=== PATIENT | female | born 1990 | race Caucasian/White ===

== ENCOUNTER 2022-08-27 19:31 | Inpatient (IN) | payer OTHER, SELFPAY ==
[2022-08-27] VITALS (54 sets, daily range): BP systolic 110–173; BP diastolic 58–90; PULSE 54–107; RESP 12–35; TEMP 36.2–36.8; O2SAT 70–100; BMI 24.3; BMI 26.1
--- NOTE | 2022-08-27 19:39 | DI.RAD.S_ITS ---
PROCEDURE: XR ANKLE LT 2V INDICATIONS: fall TECHNIQUE: A total of 2 views of the ankle were acquired. COMPARISON: None. FINDINGS: Bones: No there is a distal tibial diagonal fracture through the distal diaphysis, centered approximately 10 cm above the tibial plafond. No dislocations. Ankle mortise is normally aligned. No suspicious bony lesions. Soft tissues: No tibiotalar joint effusion. Achilles tendon appears normal. IMPRESSION: Distal diagonal 5th tibial diaphyseal fracture, no ankle trauma seen. Dictated by: Slava Lopez M.D. on 08/27/2022 at 20:16 Approved by: Slava Lopez M.D. on 08/27/2022 at 20:18
--- NOTE | 2022-08-27 19:39 | DI.RAD.S_ITS ---
PROCEDURE: XR TIBIA FIBULA LT 2V INDICATIONS: fall TECHNIQUE: 2 views of the tibia and fibula were acquired. COMPARISON: [facility], CR, XR ANKLE LT 2V, 08/27/2022, 19:51. FINDINGS: Bones: Oblique displaced fractures of the proximal fibula and distal tibia are seen. There is also a lucency of the medial malleolus possibly a nondisplaced fracture, however the margins appear corticated and this is possibly due to remote trauma Soft tissues: No suspicious soft tissue calcifications or masses. IMPRESSION: 1. Oblique acute fractures of the proximal fibula and distal tibia. 2. Lucency of the medial malleolus with corticated margin, probably due to remote trauma. Dictated by: Siddhartha Bullock M.D. on 08/27/2022 at 20:20 Approved by: Siddhartha Bullock M.D. on 08/27/2022 at 20:24
--- NOTE | 2022-08-27 19:40 | ED.GENADULT ---
HPI - General Adult General Chief complaint: Trauma Stated complaint: Fall down stairs Time Seen by Provider: 08/27/22 19:34 Source: patient and EMS Mode of arrival: EMS History of Present Illness HPI narrative: Otherwise healthy 32-year-old woman with no significant chronic medical problems and no medications was rushing and stumbled down a flight of tends stairs. She did not hit her head, there is no loss of consciousness she is complaining of significant left ankle and lower hernandez pain but is not reporting any other areas of injury. There are no obvious areas of laceration, contusion, no open fractures and no obvious additional injuries. She is in moderate pain, did receive fentanyl EN route with the medics but otherwise appropriate and able to cooperate with exam and history. Related Data Home Medications Medication Instructions Recorded Confirmed inositol 600 mg/600 mg (1/4 600 mg PO 08/28/22 teaspoonful) oral powder Allergies Allergy/AdvReac Type Severity Reaction Status Date / Time No Known Drug Allergies Allergy Verified 08/27/22 19:37 Review of Systems Review of Systems Narrative: Remainder of complete review of systems is otherwise unremarkable except for that included in the HPI. Patient History Social History household members: spouse Smoking Status: Never smoker alcohol intake: current Smoking Status: Never smoker alcohol intake frequency: 0-2 drinks per day Substance Use Type: does not use Exam Initial Vital Signs Initial Vital Signs: Vital Signs Temperature 97.1 F L 08/27/22 19:33 Pulse Rate 70 08/27/22 19:33 Respiratory Rate 18 08/27/22 19:33 Blood Pressure 139/79 08/27/22 19:33 Pulse Oximetry 99 08/27/22 19:33 Oxygen Delivery Method 08/27/22 19:33 General: Healthy appearing, in in pain but Able to give a complete and coherent history. Well-nourished well-developed HEENT: Moist mucous membranes, normal sclera with reactive pupils, no obvious trauma to the head Neck: No midline cervical spine tenderness, supple Respiratory: Lungs are clear to auscultation, no wheezing no rales no rhonchi. Full and symmetrical air movement Chest: No tenderness to palpation of the thorax Cardiac: Regular rate and rhythm no murmurs no bruits Abdomen: Soft, nontender, good bowel tones, no flank pain. No tenderness to palpation pelvic ring or hips Skin: Warm and dry, no rashes Neurologic: Grossly neurologically intact with no obvious asymmetries or abnormalities Extremities: Left ankle was swollen lateral malleolus, neurovascularly intact Psych: Cooperative, appropriate insight and affect Procedures Orthopedic Splinting/Casting Left Long leg splint: Time of procedure: 23:02 Side: left Lower Extremity Injury Location: lower leg Lower Extremity Immobilizer: posterior splint and stirrup splint (long leg) Post splinting neuro exam: intact Post splinting vascular exam: intact Placed by: Provider Additional Comments: Splint is placed for immobilization recognizing that she will be remaining in bed until surgery tomorrow. Spaces are left to check for compartment syndrome. Procedural Sedation Time of procedure: 22:33 Time out performed: Yes Indication: fracture/dislocation reduction ASA Class: I Mallampati Airway Classification: Class I Preparation: phototypesetting equipment monitor applied, pulse oximeter, capnometry used, supplemental O2 applied, suction/airway equipment at bedside and IV secured Fentanyl: IV Midazolam: IV Midazolam dose (mg): 2 Intraservice time/total sedation time (min): 10 ED Sedation Level: Moderate (Concious) Patient Tolerated Procedure: Well Complications: none Course Orders Ordered: ED Orders 08/27/22 19:39 XR ankle LT min 3V Stat XR tibia fibula LT 2V Stat 08/27/22 19:40 Complete Blood Count AUTO DIFF Stat 08/27/22 23:03 Comprehensive Metabolic Panel Stat Acetaminophen (Acetaminophen 325 Mg Tablet) 650 mg PO Q6H PRN PRN Reason: Fever/Mild Pain (1-3) Docusate Sodium (Docusate 100 Mg Capsule) 100 mg PO BID AYAKA Hydromorphone HCl (Hydromorphone 0.5 Mg Inj) 0.5 mg IV Q2H PRN PRN Reason: Pain, Moderate (4-6) Hydromorphone HCl (Hydromorphone 1 Mg Inj) 1 mg IV Q2H PRN PRN Reason: Pain, Severe (7-10) Sodium Chloride (Normal Saline 0.9%) 1,000 mls @ 125 mls/hr IV CONT AYAKA Last Admin: 08/27/22 23:42 Dose: 125 mls/hr Documented By: ANIKA Ibuprofen (Ibuprofen 600 Mg Tablet) 600 mg PO Q6H PRN PRN Reason: Fever/Mild Pain (1-3) Naloxone HCl (Naloxone 0.4 Mg/Ml Vial) 0.2 mg IV Q2MIN PRN PRN Reason: Opiate Reversal Ondansetron HCl (Ondansetron 4 Mg/2 Ml Inj) 4 mg IV Q8HR PRN PRN Reason: Nausea And Vomiting Ondansetron HCl (Ondansetron 4 Mg Odt) 4 mg PO Q8HR PRN PRN Reason: Nausea And Vomiting Oxycodone HCl (Oxycodone Ir 5 Mg Tablet) 5 mg PO Q3H PRN PRN Reason: Pain, Moderate (4-6) Oxycodone HCl (Oxycodone Ir 10 Mg Tablet) 10 mg PO Q3H PRN PRN Reason: Pain, Severe (7-10) Discontinued Medications Fentanyl (Fentanyl 100 Mcg/2 Ml Inj) 100 mcg IV NOW ONE Stop: 08/27/22 22:02 Last Admin: 08/27/22 22:33 Dose: 100 mcg Documented By: RB Hydromorphone HCl (Hydromorphone 0.5 Mg Inj) 0.5 mg IV Q15MIN PRN PRN Reason: Pain, Last Admin: 08/27/22 22:10 Dose: 0.5 mg Documented By: Admin: 08/27/22 21:01 Dose: 0.5 mg Documented By: Admin: 08/27/22 20:22 Dose: 0.5 mg Documented By: RB Hydromorphone HCl (Hydromorphone 0.5 Mg Inj) 0.5 mg IV Q15MIN PRN PRN Reason: Pain, Hydromorphone HCl (Hydromorphone 0.5 Mg Inj) 0.5 mg IV Q15MIN PRN PRN Reason: Pain, Last Admin: 08/28/22 00:13 Dose: 0.5 mg Documented By: ANIKA Sodium Chloride (Normal Saline 0.9%) 1,000 mls @ 150 mls/hr IV CONT AYAKA Last Infusion: 08/27/22 23:28 Dose: 0 mls/hr Documented By: Admin: 08/27/22 22:20 Dose: 150 mls/hr Documented By: RB Ketorolac Tromethamine (Ketorolac 30 Mg/Ml Vial) 15 mg IV NOW ONE Stop: 08/27/22 20:15 Last Admin: 08/27/22 20:20 Dose: 15 mg Documented By: JARRED Midazolam HCl (Midazolam 2 Mg/2 Ml Vial) 2 mg IV NOW ONE Stop: 08/27/22 22:02 Last Admin: 08/27/22 22:33 Dose: 2 mg Documented By: JARRED Vital Signs Vital signs: Vital Signs - 8 hr 08/27/22 19:33 08/27/22 20:29 08/27/22 19:36 Temperature 97.1 F L 97.1 F L Pulse Rate 70 70 73 Respiratory Rate 18 18 Blood Pressure 139/79 139/79 Pulse Oximetry 99 70 L 100 Oxygen Delivery Method Room Air 08/27/22 19:37 08/27/22 19:37 08/27/22 19:40 Temperature Pulse Rate 72 76 Respiratory Rate Blood Pressure 139/79 Pulse Oximetry 100 96 Oxygen Delivery Method 08/27/22 19:45 08/27/22 19:50 08/27/22 19:55 Temperature Pulse Rate 73 68 80 Respiratory Rate Blood Pressure Pulse Oximetry 95 95 94 Oxygen Delivery Method 08/27/22 20:00 08/27/22 20:00 08/27/22 20:05 Temperature Pulse Rate 76 82 Respiratory Rate Blood Pressure 128/74 Pulse Oximetry 100 100 Oxygen Delivery Method 08/27/22 20:10 08/27/22 20:15 08/27/22 20:20 Temperature Pulse Rate 70 71 Respiratory Rate Blood Pressure Pulse Oximetry 100 98 100 Oxygen Delivery Method 08/27/22 20:25 08/27/22 20:30 08/27/22 20:30 Temperature Pulse Rate 75 74 Respiratory Rate Blood Pressure 121/68 Pulse Oximetry 100 98 Oxygen Delivery Method 08/27/22 20:35 08/27/22 20:40 08/27/22 20:40 Temperature Pulse Rate 70 72 Respiratory Rate Blood Pressure 126/69 Pulse Oximetry 100 100 Oxygen Delivery Method 08/27/22 20:45 08/27/22 20:50 08/27/22 20:50 Temperature Pulse Rate 76 73 Respiratory Rate Blood Pressure 125/68 Pulse Oximetry 100 99 Oxygen Delivery Method 08/27/22 20:55 08/27/22 21:00 08/27/22 21:00 Temperature Pulse Rate 70 71 Respiratory Rate Blood Pressure 125/65 Pulse Oximetry 100 100 Oxygen Delivery Method 08/27/22 21:05 08/27/22 21:05 08/27/22 21:10 Temperature Pulse Rate 75 Respiratory Rate Blood Pressure 127/69 118/63 Pulse Oximetry 100 Oxygen Delivery Method 08/27/22 21:10 08/27/22 21:15 08/27/22 21:20 Temperature Pulse Rate 71 69 Respiratory Rate Blood Pressure 126/67 Pulse Oximetry 100 100 Oxygen Delivery Method 08/27/22 21:20 08/27/22 21:25 08/27/22 21:30 Temperature Pulse Rate 70 77 Respiratory Rate Blood Pressure Pulse Oximetry 99 100 100 Oxygen Delivery Method 08/27/22 21:31 08/27/22 21:40 08/27/22 21:50 Temperature Pulse Rate Respiratory Rate Blood Pressure 131/82 135/81 111/67 Pulse Oximetry Oxygen Delivery Method 08/27/22 21:53 08/27/22 21:55 08/27/22 22:00 Temperature Pulse Rate 62 69 Respiratory Rate Blood Pressure 118/71 Pulse Oximetry 98 99 Oxygen Delivery Method 08/27/22 22:00 08/27/22 22:05 Temperature Pulse Rate 68 68 Respiratory Rate Blood Pressure Pulse Oximetry 99 100 Oxygen Delivery Method Medical Decision Making Lab Data 08/27/22 19:40 08/27/22 22:32 Labs: Lab Results 08/27/22 Range/Units 19:40 WBC 12.0 H (4.5-11.0) X10^3/uL RBC 4.34 (4.0-5.2) X10^6/uL Hgb 13.0 (12.0-16.0) g/dL Hct 38.9 (36-46) % MCV 89.6 (80-100) fL MCH 30.0 (26-34) PG MCHC 33.5 (30-36) % RDW 12.8 (11.6-14.8) % Plt Count 295 (150-400) X10^3/uL Neut % (Auto) 62.3 (50-75) % Lymph % (Auto) 28.0 (25-40) % Grand % (Auto) 7.6 (3-14) % Eos % (Auto) 1.4 L (2-4) % Baso % (Auto) 0.7 (0-2) % Neut # (Auto) 7500 H (9326-4757) /uL Lymph # (Auto) 3400 (3662-4156) /uL Grand # (Auto) 900 (0-900) /uL Eos # (Auto) 200 (0-450) /uL Baso # (Auto) 100 (0-100) /uL Point of Care Testing Test Results Negative Point of care testing: Point of Care Testing Test Results Negative Imaging Data XR lower extremity : Radiologist's Impression: FINDINGS:? ? Bones:? Oblique displaced fractures of the proximal fibula and distal tibia are seen.? There is also a lucency of the medial malleolus possibly a nondisplaced fracture, however the margins appear corticated and this is possibly due to remote trauma ? Soft tissues:? No suspicious soft tissue calcifications or masses.? ? IMPRESSION:? 1. Oblique acute fractures of the proximal fibula and distal tibia. 2. Lucency of the medial malleolus with corticated margin, probably due to remote trauma. ? ? Dictated by: Siddhartha Bullock M.D. on 08/27/2022 at 20:20 ? MDM Narrative Medical decision making narrative: CC: Lower extremity pain after fall down 10 stairs. This is a new an acute problem with uncertain prognosis and potential for significant systemic symptoms Corroborating data: Data collected from: patient, EMS who transported her Differential considered: Fracture knee similar of the lower extremity, ankle and foot. No current evidence of compartment syndrome, possible simply sprain but doubtful Exam documented above, pertinent findings include: Significant pain around the left ankle not particularly tender over the fibular head. Soft calf with no evidence of compartment syndrome. No abrasions or contusions and no open fractures. No additional injuries on remainder of her exam Lab Test results independently reviewed as above. Pertinent findings: Mild leukocytosis at 12.0 without left shift Point of care urine is unremarkable Urine test is negative Chemistries reveal Imaging studies independently reviewed: Spiral fracture with some displacement of the distal tibia and spiral fracture with some displacement of the proximal fibula Consultations: 928pm Dr. Anderson, orthopedist. We will review x-rays and call back 1000 Dr. Anderson his reviewed films, recommends long leg splint, hospitalization overnight with surgical intervention tomorrow. Treatments: Parenteral narcotics for pain control, imaging obtained Conscious sedation with long leg splint applied see procedure section above Re-evaluations: 1000pm patient is re-evaluated. Still with moderate amount of pain as long as she is not moving it seems to be okay. Explain the need for long lying splinting, hospitalization with surgical intervention tomorrow. Because of the severity of her pain in the manipulation that will be required for the splinting we discussed conscious sedation. She and her both agree that this would likely be most appropriate. Discussion: Otherwise healthy 32-year-old woman in a simms to get to her [id number] is a birthday constitution party fell down 10 stairs and has a proximal fibular and distal tibia fracture left side neurovascularly intact. Will be admitted to Dr. Anderson's service, bridging orders are written this evening. Anticipation of surgical intervention tomorrow. Questions are answered patient is safe for transfer to the floor and can eat up until midnight tonight. Bridging orders are entered. Discharge Plan Departure Patient Disposition: Admitted as Observation Clinical Impression: Closed left fibular fracture, Closed tibia fracture, Fall down stairs Admit Date/Time: 08/27/22 22:07 Admit Provider: Roma Bassett
[2022-08-27] MEDS: KETOROLAC 30 MG/ML VIAL 15 MG IV (20:20)
[2022-08-27] MEDS: HYDROMORPHONE 0.5 MG INJ IV ×3 (20:22→22:10)
[2022-08-27 22:09] LABS: Add Manual Diff / Slide Review NO; Basophils Absolute Auto 100 /uL (0-100); Basophils Percent Auto 0.7 % (0-2); Eosinophils Absolute Auto 200 /uL (0-450); Eosinophils Percent Auto 1.4 % (2-4); Hematocrit 38.9 % (36-46); Lymphocytes Absolute Auto 3400 /uL (1100-4500); Mean Corpuscular HGB Conc 33.5 % (30-36); Mean Corpuscular Volume 89.6 fL (80-100); Monocytes Absolute Auto 900 /uL (0-900); Monocytes Percent Auto 7.6 % (3-14); Neutrophils Absolute Auto 7500 /uL (1500-7000); Neutrophils Percent Auto 62.3 % (50-75); Platelet Count 295 X10^3/uL (150-400); Red Blood Cell Count 4.34 X10^6/uL (4.0-5.2); Red Cell Distribution Width 12.8 % (11.6-14.8)
[2022-08-27] MEDS: SODIUM CHLORIDE 0.9% 1,000 ML 150 ML IV (22:20)
[2022-08-27] MEDS: fentaNYL 100 MCG/2 ML INJ IV (22:33)
[2022-08-27] MEDS: MIDAZOLAM 2 MG/2 ML VIAL IV (22:33)
[2022-08-27 22:36] LABS: COVID19 -Nasal RAPID Negative (Negative)
[2022-08-27 23:19] LABS: Alanine Aminotransferase 24 IU/L (<35); Albumin 4.4 g/dL (3.5-5.0); Albumin Globulin Ratio 1.4 (1.0-2.8); Alkaline Phosphatase 87 U/L (38-126); Aspartate Aminotransferase 23 IU/L (14-36); BUN Creatinine Ratio 18.3 (6-22); Bilirubin Total 0.6 mg/dL (0.2-1.3); Blood Urea Nitrogen 11 mg/dL (7-17); Calcium 9.6 mg/dL (8.4-10.2); Carbon Dioxide 24 mmol/L (22-32); Chloride 105 mmol/L (98-107); Estimated Glomerular Filt Rate > 60 mL/min (>60); Globulin 3.2 g/dL (1.7-4.1); Glucose 91 mg/dL (70-100); HEMOLYSIS < 15 (0-50); Sodium 138 mmol/L (137-145); Total Protein 7.6 g/dL (6.3-8.2)
[2022-08-27] MEDS: SODIUM CHLORIDE 0.9% 1,000 ML 125 ML IV (23:42)
[2022-08-28] VITALS (17 sets, daily range): BP systolic 105–133; BP diastolic 55–101; PULSE 47–90; RESP 11–20; TEMP 36.1–37.3; O2SAT 94–100; BMI 26.1
--- NOTE | 2022-08-28 | DI.RAD.S_ITS ---
PROCEDURE: XR TIBIA FIBULA LT 2V INDICATIONS: ORIF TECHNIQUE: 10 intraoperative low resolution fluoroscopic spot films were obtained COMPARISON: [facility], CR, XR TIBIA FIBULA LT 2V, 08/27/2022, 19:51. FINDINGS: Low resolution intraoperative fluoroscopic spot films show sequential placement of internal stabilization hardware associated a comminuted tibial fracture IMPRESSION: Fluoroscopic guidance Approved by: Erick Chiu M.D. on 08/28/2022 at 11:58
[2022-08-28] MEDS: HYDROMORPHONE 0.5 MG INJ IV ×5 (00:13→14:39)
--- NOTE | 2022-08-28 00:31 | PC.ADMIT ---
Addendum entered by Fadumo Núñez R.N. 08/28/22 02:33: States pain still present but not as bad as earlier as long as I don't move it. Medicated with IV Dilaudid. CMS: toes are cool to touch but is able to wiggle them and has good cap refill. Still with some numbness around ankle Original Note: [address] Admission Note: The patient,Eder Dick,32 y/o, was given written information regarding hospital policies, unit procedures and contact persons. Patient's smoking status: Never smoker. Vital Signs - 8 hr 08/27/22 19:33 08/27/22 20:29 08/27/22 19:36 Temperature 97.1 F L 97.1 F L Pulse Rate 70 70 73 Respiratory Rate 18 18 Blood Pressure 139/79 139/79 Pulse Oximetry 99 70 L 100 Oxygen Delivery Method Room Air Oxygen Flow Rate 08/27/22 19:37 08/27/22 19:37 08/27/22 19:40 Temperature Pulse Rate 72 76 Respiratory Rate Blood Pressure 139/79 Pulse Oximetry 100 96 Oxygen Delivery Method Oxygen Flow Rate 08/27/22 19:45 08/27/22 19:50 08/27/22 19:55 Temperature Pulse Rate 73 68 80 Respiratory Rate Blood Pressure Pulse Oximetry 95 95 94 Oxygen Delivery Method Oxygen Flow Rate 08/27/22 20:00 08/27/22 20:00 08/27/22 20:05 Temperature Pulse Rate 76 82 Respiratory Rate Blood Pressure 128/74 Pulse Oximetry 100 100 Oxygen Delivery Method Oxygen Flow Rate 08/27/22 20:10 08/27/22 20:15 08/27/22 20:20 Temperature Pulse Rate 70 71 Respiratory Rate Blood Pressure Pulse Oximetry 100 98 100 Oxygen Delivery Method Oxygen Flow Rate 08/27/22 20:25 08/27/22 20:30 08/27/22 20:30 Temperature Pulse Rate 75 74 Respiratory Rate Blood Pressure 121/68 Pulse Oximetry 100 98 Oxygen Delivery Method Oxygen Flow Rate 08/27/22 20:35 08/27/22 20:40 08/27/22 20:40 Temperature Pulse Rate 70 72 Respiratory Rate Blood Pressure 126/69 Pulse Oximetry 100 100 Oxygen Delivery Method Oxygen Flow Rate 08/27/22 20:45 08/27/22 20:50 08/27/22 20:50 Temperature Pulse Rate 76 73 Respiratory Rate Blood Pressure 125/68 Pulse Oximetry 100 99 Oxygen Delivery Method Oxygen Flow Rate 08/27/22 20:55 08/27/22 21:00 08/27/22 21:00 Temperature Pulse Rate 70 71 Respiratory Rate Blood Pressure 125/65 Pulse Oximetry 100 100 Oxygen Delivery Method Oxygen Flow Rate 08/27/22 21:05 08/27/22 21:05 08/27/22 21:10 Temperature Pulse Rate 75 Respiratory Rate Blood Pressure 127/69 118/63 Pulse Oximetry 100 Oxygen Delivery Method Oxygen Flow Rate 08/27/22 21:10 08/27/22 21:15 08/27/22 21:20 Temperature Pulse Rate 71 69 Respiratory Rate Blood Pressure 126/67 Pulse Oximetry 100 100 Oxygen Delivery Method Oxygen Flow Rate 08/27/22 21:20 08/27/22 21:25 08/27/22 21:30 Temperature Pulse Rate 70 77 Respiratory Rate Blood Pressure Pulse Oximetry 99 100 100 Oxygen Delivery Method Oxygen Flow Rate 08/27/22 21:31 08/27/22 21:40 08/27/22 21:50 Temperature Pulse Rate Respiratory Rate Blood Pressure 131/82 135/81 111/67 Pulse Oximetry Oxygen Delivery Method Oxygen Flow Rate 08/27/22 21:53 08/27/22 21:55 08/27/22 22:00 Temperature Pulse Rate 62 69 Respiratory Rate Blood Pressure 118/71 Pulse Oximetry 98 99 Oxygen Delivery Method Oxygen Flow Rate 08/27/22 22:00 08/27/22 22:05 08/27/22 22:10 Temperature Pulse Rate 68 68 Respiratory Rate Blood Pressure 126/70 Pulse Oximetry 99 100 Oxygen Delivery Method Oxygen Flow Rate 08/27/22 22:10 08/27/22 22:15 08/27/22 22:20 Temperature Pulse Rate 70 78 Respiratory Rate Blood Pressure 125/68 Pulse Oximetry 100 100 Oxygen Delivery Method Oxygen Flow Rate 08/27/22 22:20 08/27/22 22:25 08/27/22 22:25 Temperature Pulse Rate 73 70 Respiratory Rate Blood Pressure 124/69 Pulse Oximetry 100 100 Oxygen Delivery Method Oxygen Flow Rate 08/27/22 22:30 08/27/22 22:30 08/27/22 22:35 Temperature Pulse Rate 71 Respiratory Rate 12 Blood Pressure 124/71 126/72 Pulse Oximetry 100 Oxygen Delivery Method Oxygen Flow Rate 08/27/22 22:35 02/04/23 22:40 08/27/22 22:41 Temperature Pulse Rate 90 107 H Respiratory Rate 31 H Blood Pressure 135/84 Pulse Oximetry 100 100 Oxygen Delivery Method Oxygen Flow Rate 08/27/22 22:41 08/27/22 22:45 08/27/22 22:45 Temperature Pulse Rate 84 54 L Respiratory Rate 35 H 18 Blood Pressure 120/67 Pulse Oximetry 100 100 Oxygen Delivery Method Oxygen Flow Rate 08/27/22 22:50 08/27/22 22:50 08/27/22 22:55 Temperature Pulse Rate 61 Respiratory Rate 16 Blood Pressure 121/69 128/58 L Pulse Oximetry 89 L Oxygen Delivery Method Nasal Cannula Oxygen Flow Rate 2.5 08/27/22 22:55 08/27/22 23:00 08/27/22 23:00 Temperature Pulse Rate 61 62 Respiratory Rate 12 12 Blood Pressure 125/61 Pulse Oximetry 100 100 Oxygen Delivery Method Nasal Cannula Room Air Oxygen Flow Rate 2.5 08/27/22 23:03 08/27/22 23:05 08/27/22 23:05 Temperature 98.2 F Pulse Rate 62 54 L Respiratory Rate 16 12 Blood Pressure 126/70 126/70 Pulse Oximetry 100 100 Oxygen Delivery Method Oxygen Flow Rate 0 08/27/22 23:10 08/27/22 23:10 08/27/22 23:15 Temperature Pulse Rate Respiratory Rate 14 Blood Pressure 125/71 127/74 Pulse Oximetry 100 Oxygen Delivery Method Oxygen Flow Rate 08/27/22 23:15 08/27/22 23:20 08/27/22 23:21 Temperature Pulse Rate 62 81 Respiratory Rate 16 19 Blood Pressure 173/90 H Pulse Oximetry 97 97 Oxygen Delivery Method Oxygen Flow Rate 08/27/22 23:21 08/27/22 23:25 08/27/22 23:35 Temperature 97.8 F Pulse Rate 82 70 60 Respiratory Rate 22 16 Blood Pressure 110/63 Pulse Oximetry 97 97 Oxygen Delivery Method Oxygen Flow Rate 08/28/22 00:29 Temperature Pulse Rate Respiratory Rate Blood Pressure Pulse Oximetry Oxygen Delivery Method Room Air Oxygen Flow Rate Patient admitted to room 213 at 2335 per stretcher from ER. Transferred into bed with use of slider with patient experiencing a good deal of pain in left LE during transfer. Is alert and oriented. Breath sounds CTA with RA sat of 97%; placed on continuous oximetry per MD order. HRR. Denies nausea. BT present and abdomen is soft. External catheter placed as patient is on bedrest and has significant pain with movement so unable to use a bedpan. Left LE is splinted and patient states she has some numbness around the ankle but able to wiggle toes (denies tingling/numbness in toes) and has good capillary refill. Both feet are cool to touch. States pain is 6/10 and described as aching/burning; medicated with IV Dilaudid. Fall risk score is moderate but no need for bed alarm at this time. Instructed on NPO status and offered mouth swabs but declines. Oriented to call light and bed controls.
--- NOTE | 2022-08-28 06:47 | DI.CT.S_ITS ---
PROCEDURE: CT LE LT W CON INDICATIONS: distal tibia fracture- possible medial mal- eval TECHNIQUE: After the administration of intravenous contrast, 3 mm axial sections acquired of the left calf , with coronal and sagittal reformats. COMPARISON: [facility], CR, XR TIBIA FIBULA LT 2V, 08/27/2022, 19:51. FINDINGS: Image quality: Excellent. Oblique comminuted fracture through the distal tibia and proximal fibula again noted. Normal bone mineralization. Ankle and the joints are preserved. Additionally, there is an incomplete nondisplaced fracture through the medial malleolus as well as an oblique vertical fracture through the posterior malleolus extending to the tibial talar joint. Ankle mortise does not appear widened. Intrinsic bones of the hindfoot are intact. IMPRESSION: 1. Nondisplaced fractures through the medial malleolus as well as the posterior malleolus with involvement of the tibial talar joint. No ankle mortise widening. 2. Comminuted oblique fractures of the distal tibial and proximal fibular diaphysis. Approved by: Erick Chiu M.D. on 08/28/2022 at 8:57
--- NOTE | 2022-08-28 07:56 | PM.HP.1 ---
History of Present Illness History of Present Illness Date Patient Seen: 08/28/22 Time Patient Seen: 07:56 Date of Onset of Symptoms: 08/27/22 Chief complaint: Fall down stairs Narrative: Patient is a 32-year-old female that is referred by Dr. Edwards. The patient was running down the stairs when she tripped and fell sustaining an injury to her left lower extremity with deformity and she was unable to weightbear. She was brought to the [facility] Emergency room by EMS and determined to have a distal tibia shaft fracture and proximal fibula fracture. She was indicated for admission to the hospital for pain control stabilization and planned fixation of her lower extremity fracture. She did not have any other injuries. She did not lose consciousness. Her vital signs were stable. She is no known medical allergies. She endorsed pain deformity swelling. Compartments were soft in the emergency room. Patient was neurovascularly intact. She was placed in a long leg splint. Admitted to the floor for planned surgery in the morning. Negative urine screen For medical history broken small toe on left leg remotely. Past medical history of PCOS. 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 Otherwise no significant medical history with her lower extremities. No previous surgery. No known family history of blood clots or hyper coagulation disorders. Patient History Family & Social History Social History: household members spouse Prior Living Arrangements House Safety & Behavioral: Feels Safe in Current Yes Environment Been Physically Hurt or No Threatened By a Person Tobacco & Substance use: Smoking Status Never smoker alcohol intake current alcohol intake frequency a few times a week Substance Use Type does not use Meds Home Medications and Allergies Home Medications Medication Instructions Recorded Confirmed Type inositol 600 mg/600 mg (1/4 600 mg PO 08/28/22 History teaspoonful) oral powder Allergies Allergy/AdvReac Type Severity Reaction Status Date / Time No Known Drug Allergies Allergy Verified 08/28/22 08:48 Review of Systems Review of Systems Narrative: No fevers chills nausea vomiting numbness or tingling no headache ROS: Yes All systems reviewed with the patient and are negative except as otherwise documented Exam Vital Signs (past 8 hours): - 08/28/22 00:29 08/28/22 05:11 08/28/22 05:11 Temperature 98.3 F Pulse Rate 66 Respiratory Rate 16 Blood Pressure 105/55 L Pulse Oximetry 97 Oxygen Delivery Method Room Air Oxygen Flow Rate 0 Oxygen Delivery Method Room Air Oxygen Flow Rate 0 Narrative Exam Narrative: Alert oriented female in no acute distress Normocephalic atraumatic Heart regular rate and rhythm Lungs clear to auscultation bilaterally Moving bilateral upper extremities no tenderness to palpation full range of motion Right lower extremity normal alignment no tenderness to palpation Left lower extremity long leg splint. Compartments are soft. Wiggles toes. Limited motor exam due to known fractures. Thigh and lower extremity compartments soft. Sensation grossly intact to light touch. Brisk capillary refill. Palpable dorsalis pedis pulse. Objective Imaging Left tib-fib two view: My impression: AP and lateral of the left tibia and fibula demonstrate distal 3rd tibia fracture proximal 3rd fibula fracture. Moderate displacement tibial fracture Left ankle three views: My impression: Three-view left ankle AP mortise and lateral demonstrate visualization of the distal 3rd tibia fracture. Proximal fibula fracture not visualized. There is a lucency nondisplaced around the medial malleolus the some cortication unclear if evidence of old trauma versus nondisplaced malleolar extension. Mortise symmetric CT scan left lower extremity: My impression: Proximal fibula fracture, distal 3rd tibial spiral shaft fracture and nondisplaced posterior malleolus fracture Labs 08/27/22 19:40 08/27/22 23:03 Labs: Laboratory Results - last 24 hr 08/27/22 08/27/22 08/27/22 19:40 23:03 Unknown WBC 12.0 H RBC 4.34 Hgb 13.0 Hct 38.9 MCV 89.6 MCH 30.0 MCHC 33.5 RDW 12.8 Plt Count 295 Neut % (Auto) 62.3 Lymph % (Auto) 28.0 [place] % (Auto) 7.6 Eos % (Auto) 1.4 L Baso % (Auto) 0.7 Neut # (Auto) 7500 H Lymph # (Auto) 3400 [place] # (Auto) 900 Eos # (Auto) 200 Baso # (Auto) 100 Sodium 138 Potassium 4.0 Chloride 105 Carbon Dioxide 24 BUN 11 Creatinine 0.60 Estimated GFR > 60 BUN/Creatinine Ratio 18.3 Glucose 91 Calcium 9.6 Total Bilirubin 0.6 AST 23 ALT 24 Alkaline Phosphatase 87 Total Protein 7.6 Albumin 4.4 Globulin 3.2 Albumin/Globulin Ratio 1.4 SARS-CoV-2 (PCR) Negative Assessment & Plan Assessment and plan (1) Closed tibia fracture: Qualifiers: Encounter type: initial encounter Fracture morphology: torus Laterality: left Tibia location: proximal Qualified Code(s): S82.162A - Torus fracture of upper end of left tibia, initial encounter for closed fracture Status: Acute (2) Closed left fibular fracture: Qualifiers: Encounter type: initial encounter Fibula location: distal Fracture morphology: torus Qualified Code(s): S82.822A - Torus fracture of lower end of left fibula, initial encounter for closed fracture Status: Acute (3) Fall down stairs: Qualifiers: Encounter type: initial encounter Qualified Code(s): W10.8XXA - Fall (on) (from) other stairs and steps, initial encounter Status: Acute (4) Fracture, posterior malleolus: Status: Acute Plan Left tib-fib fracture, distal 3rd tibia fracture. There is some questionable lucency around the medial malleolus with distal 3rd tibia fractures there is fairly high incidence of intra-articular extension. Plan to get CT scan to further evaluate this. Fracture is a surgical fracture would benefit from jehovah's witness of alignment to prevent malunion and restore early range of motion and function. We will plan for intramedullary stephen plus or minus ORIF as indicated by CT scan today. Patient has been NPO at midnight. No medication allergies will have 2 g of Ancef as preoperative antibiotic. Labs were within normal limits. Compartments are soft. No evidence of compartment syndrome. The risks and benefits of the procedure have been discussed with the patient and given the opportunity to ask questions. The risks of surgery include but are not limited to infection, malunion, nonunion, persistence of pain, damage to nerves and blood vessels, posttraumatic arthritis, DVT, PE, cardiopulmonary complications and . The patient expressed a thorough understanding of the risks and benefits of surgery and has elected to proceed. Consent was signed. --CT scan does reveal posterior malleolus fracture plan to ORIF posterior malleolus fracture and intramedullary stephen distal shaft component. Discussed proximal tibia fracture does not require separate fixation COVID-19 COVID-19 status: Negative Time Spent With Patient Critical Care time: I spent a total of [] minutes of critical care time on this patient's care today; this time is exclusive of procedural time. Quality VTE Deep Vein Thrombosis/Pulmonary Embolism Present on Admission: No
[2022-08-28] MEDS: ONDANSETRON 4 MG/2 ML INJ IV (08:24)
[2022-08-28] MEDS: LACTATED RINGERS 1,000 ML 42 ML IV ×2 (08:40→12:26)
--- NOTE | 2022-08-28 09:10 | SUR.HOLD ---
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
[2022-08-28] MEDS: CEFAZOLIN 2 GM/100 ML PREMIX 100 ML IV ×2 (09:45→17:13)
[2022-08-28] MEDS: BUPIVACAINE 0.5% W/ EPI (PF) 30 ML VIAL INJ (10:13)
--- NOTE | 2022-08-28 10:21 | SUR.OPER ---
Supine on juan flat top bed, head on pillow, arms secured on padded arm boards at <90 degrees abduction, legs uncrossed, safety belt at torso, tape over blanket over lower right leg.
--- NOTE | 2022-08-28 10:34 | CM.DANOTE ---
Patient is a 32 yo female who was admitted on 08/27/22 after fall. Pt has [employer] for insurance and her PCP is not listed. EMR was reviewed. Per Ortho, pt with tibia and fibula fx and recommending surgical intervention. SW attempted to meet bedside with pt but she is off the floor and down to surgery. Plan: SW to follow closely after surgery and likely PT eval towards determining any d/c planning needs. TANMAY Rodriguez Discharge Planning/Care Management CM Discharge Assessment Start: 08/28/22 10:22 Freq: Status: Active Protocol: Document 08/28/22 10:22 BF (Rec: 08/28/22 10:34 BF [id number]) Discharge Planning Assessment Assigned Graphic Illustrator TANMAY Andrade DPOA/Assigned Designee Name informally spouse Tu Contact Information [phone] Advance Directives? No Advance Directives on File No History Provided By Patient,Medical Record Has Patient been admitted in last 30 No days? Prior Living Arrangements House Household Members spouse Type of transporation used prior to Drives own vehicle admit Independent with ADL's Yes Is patient alert and oriented? Yes Caregiver for Another No Comment Pending surgery and PT eval to determine needs Barriers to Discharge No Discharge Plan Home Transportation Arrangement Spouse or family to transport at d/c Referrals Initiated None needed Additional Comment Pending progress after surgery Review Status In Process Please Provide Date Initial DC 08/28/22 Assessment Was Performed Next Review Type Continued Stay Review
[2022-08-28] MEDS: HYDROMORPHONE 2 MG INJ IV (12:34)
--- NOTE | 2022-08-28 12:37 | PM.OP.1 ---
Operative Date/Time/Diagnoses Date of procedure: 08/28/22 Time of procedure: 09:30 Pre-op diagnosis: 1. Left tib-fib shaft fracture closed 2. Posterior malleolus fracture closed left Post-op diagnosis: same Procedure & Clinicians Procedure: 1. Intramedullary nailing left tibia fracture closed treatment fibula. CPT code 19744 2. Open reduction internal fixation posterior malleolus fracture. CPT code [id number] for separate surgical site Same procedure as scheduled: Yes Indications: Patient is a 32-year-old female that fell down the stairs sustaining a twisting mechanism with a distal 3rd spiral tibia fracture, proximal fibular fracture and nondisplaced posterior malleolus fracture that was demonstrated on CT scan. She was indicated for treatment for her displaced unstable fracture pattern. She was brought into the hospital for pain control and compartment monitoring. Compartments were soft. She was indicated for surgery. The risks and benefits of the procedure have been discussed with the patient and given the opportunity to ask questions. The risks of surgery include but are not limited to infection, malunion, nonunion, persistence of pain, damage to nerves and blood vessels, posttraumatic arthritis, DVT, PE, cardiopulmonary complications and . The patient expressed a thorough understanding of the risks and benefits of surgery and has elected to proceed. Consent was signed. Surgeon: Roma Bassett Click Yes if Unassisted: Yes Anesthesia Type: General and Local Operative Notes Findings: Displaced distal 3rd spiral tibia fracture with posterior comminution. Separate nondisplaced posterior malleolus fracture identified on CT scan. There is an suggestion of a lucency on plain radiographs around the medial malleolus but no separate fracture line was demonstrated on CT scan other than the posterior malleolus fracture. Patient was prepped and draped. The posterior malleolus fracture remained in appropriate alignment nondisplaced minimally displaced fracture. This was then reduced and fixed with a 4.0 cannulated screw out of the Temple and Nephew set was a 4.0 x 38 mm screw partially threaded lag by design screw. At 1st the level of the desired trajectory was marked in the AP and lateral planes to be out of the way of the nail and the guidewire was passed and drilled and the screw placed. Anatomic reduction of the posterior malleolus fracture was noted then attention was turned to the shaft fracture was provisionally clamped and then suprapatellar tibial nailing was completed. Care was taken to protect the patellar cartilage which was smooth before and after surgery. Once internal fixation was completed. Ligamentous examination was done and noted to be stable Closure Type: primary Specimen(s): none sent Prosthetic devices, grafts, tissues, transplants, or devices: Temple and nephew 4.0 cannulated screw 38 mm Temple and Nephew [employer] [place] nail tibial nail 8.5 x 34 cm 4.5 interlocking screws proximally 47.5 and 60 mm Distally 4.5 interlocking screws 30 mm, 27.5 mm and 25 mm Estimated Blood Loss (mL): 50 Blood products transfused: none Tourniquet time (min): 0 Procedure in detail: Patient was seen in the preoperative area the site of surgery was marked informed consent confirmed. Questions were answered. The patient was brought back to the operating room by the anesthesia team. General anesthesia was administered on the hospital bed and the patient was transferred to the flat top Vinh table. All bony prominences were well padded. An SCD was placed on the contralateral lower extremity. A well-padded thigh tourniquet was placed on the surgical leg this was not inflated. Left lower extremities prepped and draped in the standard sterile fashion. A formal time-out procedure was performed confirming the patient's side and site of surgery administration of preoperative antibiotics and presence of informed consent. Implants were in the room accounted for. All were in agreement. Attention turned to the left lower extremity. The C-arm was brought in making sure we could get adequate AP and lateral images. The leg had been positioned in the semi extended position with the knee flexed approximately 10?. At this time attention was 1st turned to the posterior malleolus fixation Posterior malleolus ORIF: C-arm was brought in evaluating the posterior malleolus fracture which was nondisplaced in the AP and lateral planes. Trajectory for a lag by design screw outside of the nail was desired. The guidewire for the 4.0 cannulated screw was placed percutaneously lining it up with the physeal scar distally and known midpoint of the fracture fragment in an a to P plane this was then advanced through the bone with appropriate trajectory on fluoroscopy care was taken to protect the soft tissues. This was then drilled measured and a 38 mm 4.0 short thread cannulated screw was placed anterior to posterior which provided excellent anatomic reduction of the posterior malleolus fragment. Tibia intramedullary nail: Next attention was turned to the tibial shaft fracture. The extra bump was placed under the knee increasing the knee flexion slightly. The patella was marked out and a 4 cm incision starting from the proximal 3rd of the patella extending about 2 cm above the patella was taken down the skin and subcutaneous tissue to the level of the quadriceps tendon. A incision in the quadriceps tendon the slight extension into the medial retinaculum was made and the patella was subluxed laterally. Guidewire was placed in obtaining appropriate trajectory just medial to the lateral tibial spine and just off the anterior edge of the tibia this was checked in the AP and lateral planes care was taken to protect the patellar cartilage in the guidewire was just advanced slightly to confirm position then the protector a cannula was was placed over and again trajectory was confirmed and the guidewire was advanced further. At this point alignment was appropriate For the start point. Attention was turned distally where a percutaneous clamp was used to reduce the tibial shaft fracture and hold the reduction. Attention was returned proximally where the opening Reamer was used again special care was taken to make sure that the patella protecting cannula was all the way down to the bone and this was checked throughout the procedure. Next the guidewire and opening Reamer were removed. The ball-tip guidewire was then placed and advanced across the fracture site down to a center center position in the distal tibia this was monitored under multiplanar fluoroscopy. Next the nail was measured this was for a 34 cm nail. She was noted to have a very tight isthmus and estimated to likely require a 8.5 nail. Next the sequential reamers were passed. As expected there was quite a bit of chatter with the 9 mm Reamer and this was slowly advanced to a 9.5 and then a 10 mm Reamer again with chatter so an 8.5 nail was selected. Next the 8.5 nail was passed over the ball-tipped guidewire and advanced to appropriate levels on the AP and lateral plane this was noted to maintain appropriate trajectory acceptable reduction of the fracture the cortex lining up well. And appropriate implant length. Once this was completed the nail was locked proximally and distally statically. With 2 screws proximal and 3 locking screws distally for the distal fracture pattern. Two proximal screws were placed through the jig and the distal screws were placed using the perfect new [place] technique. The jig was removed. Final x-rays were taken confirming appropriate hardware placement and alignment. The wounds were irrigated with special care doing a thorough irrigation of the knee joint. Again the patellar cartilage was noted to be nice and smooth. Quadriceps was then closed with 0 Vicryl suture subcutaneous with 2-0 Vicryl and skin with Monocryl and nedra. Local anesthetic was infiltrated around the incisions. Compartments were soft at the end of the case. Sterile dressings with Xeroform gauze and Tegaderm proximally and a splint distally were placed. The patient was awoken from anesthesia and taken to the recovery room in good condition. There no immediate complications from this procedure. Counts were correct. Complications: none Post-operative Condition: stable Disposition: PACU Plan for aftercare: Toe-touch weight-bearing for least 2 weeks in the splint while incisions heal. Follow up with Orthopedic surgery in 2 weeks for staple removal at that point will be transitioned to a tall walking boot and will begin progressive protected weight-bearing 25% per week and early range of motion. Aspirin 325 mg daily starting postop day 1 for DVT prophylaxis x4 weeks.
--- NOTE | 2022-08-28 12:42 | DI.RAD.S_ITS ---
PROCEDURE: XR TIBIA FIBULA LT 2V INDICATIONS: pacu postop TECHNIQUE: 2 views of the tibia and fibula were acquired. COMPARISON: [facility], CR, XR TIBIA FIBULA LT 2V, 08/28/2022, 0:00. FINDINGS: Bones: Oblique proximal fibular fracture remains unchanged. Distal tibial fractures now show internal stabilization with intramedullary stephen fixation screws and cannulated screw through the posterior malleolus. Fracture line to the medial malleolus again noted. Ankle mortise widening Soft tissues: No suspicious soft tissue calcifications or masses. IMPRESSION: Tibial fracture internal fixation in good position Approved by: Erick Chiu M.D. on 08/28/2022 at 13:02
[2022-08-28] MEDS: fentaNYL 100 MCG/2 ML INJ IV ×2 (13:07→13:12)
[2022-08-28] MEDS: KETOROLAC 30 MG/ML VIAL IV ×3 (13:11→22:47)
[2022-08-28] MEDS: OXYCODONE IR 5 MG TABLET PO ×3 (13:12→19:54)
--- NOTE | 2022-08-28 13:17 | SUR.PHASEI ---
Patient ready to transfer to floor but emissions testing and repair technician adjusting leg for film. Patient screaming in pain and 10/10. Medicated patient again with 100 mcg of fentanyl, one oxycodone PO and 30 mg of Toradol IV. Comfort measures given.
[2022-08-28] MEDS: LACTATED RINGERS 1,000 ML 125 ML IV ×2 (13:44→21:48)
[2022-08-28] MEDS: OXYCODONE IR 10 MG TABLET PO (22:47)
[2022-08-29] MEDS: CEFAZOLIN 2 GM/100 ML PREMIX 100 ML IV (01:19)
[2022-08-29] MEDS: KETOROLAC 30 MG/ML VIAL IV ×2 (05:39→12:33)
[2022-08-29 06:31] VITALS: BP 106/56; PULSE 56; RESP 12; TEMP 37.3; O2SAT 98
[2022-08-29 06:41] LABS: Hematocrit 30.2 % (36-46); Hemoglobin 10.2 g/dL (12.0-16.0); Mean Corpuscular HGB Conc 33.8 % (30-36); Mean Corpuscular Hemoglobin 30.2 PG (26-34); Mean Corpuscular Volume 89.2 fL (80-100); Platelet Count 208 X10^3/uL (150-400); Red Blood Cell Count 3.39 X10^6/uL (4.0-5.2); White Blood Cell Count 18.3 X10^3/uL (4.5-11.0)
[2022-08-29] MEDS: DOCUSATE 100 MG CAPSULE PO (08:31)
[2022-08-29] MEDS: ASPIRIN EC 325 MG TABLET PO (08:31)
[2022-08-29] MEDS: OXYCODONE IR 10 MG TABLET PO (08:31)
--- NOTE | 2022-08-29 09:14 | P.DS_ITS ---
History of Present Illness History of Present Illness Date Patient Seen: 08/29/22 Time Patient Seen: 09:14 Date of Onset of Symptoms: 08/27/22 Chief complaint: Fall down stairs Narrative: Patient is a 32-year-old female that is referred by Dr. Edwards. The patient was running down the stairs when she tripped and fell sustaining an injury to her left lower extremity with deformity and she was unable to weightbear. She was brought to the [facility] Emergency room by EMS and determined to have a distal tibia shaft fracture and proximal fibula fracture. She was indicated for admission to the hospital for pain control stabilization and planned fixation of her lower extremity fracture. She did not have any other injuries. She did not lose consciousness. Her vital signs were stable. She is no known medical allergies. She endorsed pain deformity swelling. Compartments were soft in the emergency room. Patient was neurovascularly intact. She was placed in a long leg splint. Admitted to the floor for planned surgery in the morning. Negative urine screen For medical history broken small toe on left leg remotely. Past medical history of PCOS. 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 Otherwise no significant medical history with her lower extremities. No previous surgery. No known family history of blood clots or hyper coagulation disorders. Discharge Providers Provider Date of admission: 08/27/22 22:07 Discharge Date: 08/29/22 Primary care physician: Doctor Rajan MD Consults: 08/28/22 12:54 Consult to Discharge Planning Routine Comment: Consult to Physical Therapy Evaluate & Treat Comment: ttwb LLE Physician Instructions: Evaluate and Treat Discharge provider: Roma Bassett MD Summary Hospital Course Discharge Diagnosis: left tibia and fibula fractures, posterior mal fx Hospital Course: pt was admitted to hospital pain and compartmetns monitored , CT with PM fx and incomplete medial mal- surgery on 08/28 tibia imn, orif post mal, nonop fibula and medial mal. pain mangaded postop and compartments soft. worked wit PT on POD 1 and appropriate for dc home. TTWB Status at Discharge Cognitive/behavioral status at discharge: oriented Functional status at discharge: uses cane/walker Overall status at discharge: patient is progressing back to baseline Time Spent with Patient Time spent: Less than 30 minutes Time spent discussing smoking cessation with patient: 3 to 10 minutes Exam Vital Signs (past 8 hours): - 08/29/22 06:31 Temperature 99.1 F Pulse Rate 56 L Respiratory Rate 12 Blood Pressure 106/56 L Pulse Oximetry 98 Oxygen Delivery Method Room Air Oxygen Flow Rate 0.5 Narrative Exam Narrative: LLE: in splint and wrap, compartments soft/compressible, wiggles toes, palp DP pulse. dsg in place some pain at fx site and knee. moderate swelling at knee consistent with surgery. Const General: cooperative, healthy appearing and acute distress HENMT Head: normal to inspection, normocephalic and atraumatic Chest Chest: normal inspection of the chest Resp Effort & Inspection: normal respiratory effort and able to speak in complete sentences Cardio Rate: regular rate Rhythm: regular rhythm Neuro General: patient alert, patient awake, patient oriented x3 and moves all extremities Objective Labs 08/29/22 05:58 08/27/22 23:03 Labs: Laboratory Results - last 24 hr 08/29/22 05:58 WBC 18.3 H D RBC 3.39 L Hgb 10.2 L Hct 30.2 L MCV 89.2 MCH 30.2 MCHC 33.8 RDW 13.0 Plt Count 208 transient leukocytosis consistent with trauma-- vitals otherwise NL, no fever or chills PFSH Social History household members: spouse Smoking Status: Never smoker alcohol intake: current Discharge Assessment & Plan Assessment and Plan Assessment: L tibia fibia fx and posterior mal s/p surgery POD 1 doing well Plan of Treatment: plan: dc home today after PT TTWB LLE f/u 2 weeks asa for DVT prophy Discharge Plan Discharge Plan Patient Disposition: Home Discharge orders & Medications Prescriptions: New aspirin 325 mg Tablet,Delayed Release (Dr/Ec) 325 mg PO DAILY Qty: 42 0RF docusate sodium 100 mg Capsule 100 mg PO BID Qty: 30 0RF ondansetron 4 mg Tablet,Disintegrating 4 mg PO Q4HR PRN (Reason: Nausea And Vomiting) Qty: 5 1RF oxycodone 5 mg Tablet 5 mg PO Q4HR PRN (Reason: pain) Qty: 42 0RF ibuprofen 800 mg tablet 800 mg PO TID Qty: 30 0RF Continued inositol 600 mg/600 mg (07/27 teaspoon) Powder 600 mg PO Follow up/Referrals: Roma Bassett MD [Physician] - 2 Weeks Miscellmisha,MD Jane [Primary Care Provider] - Diet/Activity/Treatments Diet: Diet as Tolerated Activity: Toe-touch weight-bearing for least 2 weeks in the splint while incisions heal. Follow up with Orthopedic surgery in 2 weeks for staple removal at that point will be transitioned to a tall walking boot and will begin progressive protected weight-bearing 25% per week and early range of motion. Other treatments: Aspirin 325 mg daily starting postop day 1 for DVT prophylaxis x4 weeks. At-Home Instructions - Dr. Bassett Surgery: tibia fracture Cast/Splint/Dressing Care Instructions 1) Keep cast/dressing clean and dry. 2) May bathe - but cast/dressing must remain dry. 3) Should the cast/ splint become wet, you need to come into emergency department or call your physician's clinic immediately for cast removal and replacement. Moisture can cause skin breakdown and lead to infection if left untreated. 4) Do not stick any sharp object down the cast to itch, as this can cause scrapes/cuts/punctures which can lead to infection. 6) Observe for increasing pain in the extremity with the cast, finger/toe-tips turning blue/purple, or numbness and tingling in your toes/fingers. Should any of these symptoms arise, you need to be seen immediately for evaluation of swelling and increasing compartment pressures within your affected extremity. 7) Keep your affected extremity elevated - Toes Above your Nose? - This is ritter in the first two weeks after surgery to minimize swelling. 8) You may ice your extremity, being careful to prevent melting ice from s aturating into the splint/cast. 9) you may loosen or spread splint if needed Activity No heavy lifting greater than 10 pounds. No [address] while on narcotic pain medication. Do not get your dressing/cast/splint wet! You must remain non-weight/ toe touch down weight bearing on your operative extremity. Use crutches or a walker for ambulation. No driving until you are otherwise instructed by your physician. This will be addressed at your first follow-up appointment. Discharge Pain Medications You will be given a prescription for pain medication. You should start taking this the same day after your surgery. Wean off as tolerated. Do not wait to take the pain medication until the pain is severe, as it will be difficult to catch up once this occurs. The pain medication usually reaches its full effect ~1 hour after ingesting. If you have been sent home on Colace, this medication should be taken until you are off all narcotic (i.e. Vicodin, Percocet, Oxycodone, etc) pain medications, to prevent constipation. You may also obtain this or another stool softener over the counter to prevent or alleviate constipation. Percocet or Vicodin have Tylenol in their ingredient lists. You must be careful not to exceed 3,000mg (3 grams) of Tylenol, from all sources, within a single 24-hr period. This means that you may not take more than 10 pills within a 24-hr period. Do NOT take Regular or Extra Strength Tylenol when taking your Percocet or Vicodin medications. -IF you have been given a Toradol/ketorolac prescription, this is a very strong anti-inflammatory. Do not take wmqy-rpx-cduryio anti-inflammatories (ibuprofen, Aleve, Advil, Motrin) while taking the Toradol/ketorolac. Once you are finished with this prescription, then you can resume irzp-qpv-znibazi anti- inflammatories. You can still take your narcotic pain medication and Tylenol while taking the Toradol/ketorolac. -Some common side effects of the narcotic pain medications (Percocet, Oxycodone, Vicodin, etc.) include nausea and itching. Benadryl is a great over the counter medication that helps calm your stomach, decreases your anxiety levels, and minimizes the itching. You can easily purchase this at your local pharmacy as an mnze-dbi-fwgkdvu medication. Please abide by the instructions as printed on the bottle. If your nausea persists, make sure to take small amounts of crackers or other cement mixer driver foods. -If have been given oxycodone 5 mg tablets, try to take the smallest dose needed to control your pain. Generally start with 5 mg every 4 hours as needed for pain. However you can increase this if you are having significant pain. The maximum dosage for oxycodone would be 15 mg or three (5 mg) tablets p.o. every 3 hours as needed for pain. As soon as pain is better controlled you should decrease the amount of medication your taking and increase the interval between doses. If you are given Percocet or Vicodin or Ambrose these are medications with the n arcotic and Tylenol in them and they were dosing will need to keep in mind the maximum daily dosages for Tylenol/acetaminophen. Follow-Up/Emergency Contacts Please call for an appointment in either [place] or [place], if one has not been scheduled. Follow up 2 weeks after surgery. [phone] Contact the office if you have any of the following: ? Painful swelling or numbness ? Unrelenting pain ? Fever (over 101?- it is normal to have a low grade fever for the first day or two following surgery) or chills ? Redness around the incisions ? Color changes ? Continuous bleeding or drainage from the incision (a small amount is expected) ? Excessive nausea or vomiting ? Difficulty breathing If you have an emergency that requires immediate attention such as shortness of breath or chest pain, call 911 or proceed to the nearest emergency room. Blood Clot Prophylaxis You will need to complete a total 4-week (42 days) course of Aspirin enteric coated (325 mg daily) after surgery, to minimize the risk of blood clots following surgery. You may alternatively purchase or use whdu-cce-eotcajl generic equivalent Aspirin. If you already have ?baby? Aspirin (81mg) at home, you can take 4 ?baby? Aspirin (daily) to total 324mg for the equivalent dose. If you have gastric upset with this or a history of gastric bleeding or ulcers, do not take aspirin, please call the office for alternatives. Commence foot and ankle. knee pumps and movement with the nonoperative leg to keep your blood moving and help prevent clots. You can also obtain compression socks of antiembo lism hose (URIEL) hose from the drug store to wear on the nonoperative leg and also on the operative leg once the splint or cast is removed. Adjust your position or get up onto your crutches every hour or so just to move around. Pain Medications: It is the policy of [facility] that narcotic medications will only be refilled during office hours. Additionally, due to the alarming rate of narcotic pain medication abuse/dependence, it has become necessary for physician practices to closely manage patient use of prescription narcotic pain relievers, such as Vicodin (Ambrose), Percocet, and Oxycodone products. Narcotic pain management in the postoperative period may not exceed 6 weeks. If narcotic pain management is required beyond 90 days, then a referral to a Chronic Pain Specialist will be made. If a request for a medication prescription has been made, the physician must rev iew your chart prior to authorizing the request. Please be patient with office staff. If you call during patient hours, your call may not be returned until the end of the day. Dr. Roma Bassett [address] [email or web address] Skin/Wound/Dressing Care Report to your healthcare provider any signs of infection, such as:: chills, fever, night sweats, increased pain, unusual drainage and unusual redness Visit Report/Discharge Packet Instructions: DI for Prescription Opioid Use Stand Alone Forms: Patient Portal/API, Stroke Signs & Symptoms, Surgery Discharge Discharge Data Primary Care Provider: Miscellaneous,Doctor Quality [facility]TE Deep Vein Thrombosis/Pulmonary Embolism Present on Admission: No
--- NOTE | 2022-08-29 10:45 | PT.IIE ---
Current Diagnoses Torus fracture of upper end of left tibia, initial encounter for closed fracture (08/27/22) Other fracture of lower end of unspecified tibia, initial encounter for closed fracture (08/27/22) Torus fracture of lower end of left fibula, initial encounter for closed fracture (08/27/22) Fall (on) (from) other stairs and steps, initial encounter (08/27/22) Surgery Performed Operation Date: 08/28/22 09:00 Actual Procedures p Intramedullary Nailing Tibia, open reduction internal fixation posterior malleolus fracture(Left) - Roma Bassett MD Physical Therapy Inpatient Evaluation/Re-Eval M1 PT/OT-IP Prior Functional Status Start: 08/29/22 12:32 Freq: NEEDED Status: Active Protocol: Document 08/29/22 17:56 [facility] (Rec: 08/29/22 13:07 [facility] [id number]) Medical Review Prior Functional Status Medical History Reviewed Yes Diet/Fluid Consistency Regular Communication WNL Mobility and Gait WNL Activities of Daily Living and IADL's WNL Social History Household Members spouse Living Arrangements House Number of Floors (Floors) Two Floors Number of Stairs To Enter/Railing? 1 LIAT; can stay on main floor but bedroom requires her to go down 3 steps w/rails B but could only hold one at a time Home Environment Standard Height Toilet,Walk in Shower Home Equipment Grab Bars Near Toilet,Grab Bars In Shower Employment Status Educational Director Employed Additional Social History Comment pt works from home so plans to transition back as able. also works from home so will be available as needed M2 PT-IP Current Condition Start: 08/29/22 12:32 Freq: NEEDED Status: Active Protocol: Document 08/29/22 17:56 [facility] (Rec: 08/29/22 13:07 [facility] [id number]) Physical Therapy Current Condition Current Condition Evaluation Date 08/29/22 Treatment Diagnosis L ORIF post malleoli & IN L tibia M3 PT-IP Subjective Start: 08/29/22 12:32 Freq: NEEDED Status: Active Protocol: Document 08/29/22 17:56 [facility] (Rec: 08/29/22 13:07 [facility] [id number]) Subjective Physical Therapy Visit Type Type Initial Evaluation Visit Start Time 09:55 Visit Stop Time 10:38 Total Visit Minutes 43 Number of LITHOGRAPHER APPRENTICE Visits 0 Physical Therapy Visit Comments Patient Comments Pt hoping to go home today Therapy Pain Assessment Pain When Pain Assessed During Mobility Pain Present Pain Present Pain Reported M4 PT-IP Mobility and Gait Start: 08/29/22 12:32 Freq: NEEDED Status: Active Protocol: Document 08/29/22 17:56 [facility] (Rec: 08/29/22 13:07 [facility] [id number]) PT-Bed Mobility Assessment Supine to Sit Supine to Sit Standby Assistance Sit to Supine Sit to Supine Standby Assistance Scooting Scooting to Edge of Bed Standby Assistance Scooting Up and Down in Bed Independent PT-Transfer Assessment Sit to and From Stand Sit to and from Stand Standby Assistance,Use of Upper Extremities Equipment Transfer Assistive Device Gait Belt,Front Wheeled Walker ,Axillary Crutches Transfers Transfer Destination Chair Transfer Technique Stand Step Pivot Transfer Ability Level of Assist Standby Assistance Comments Mobility Comments supine to sit w/PT lifitng LLE SBA w/ cues; BP 113/70 and pt reports mild lightheadness that got better. Stand 121/66 and SBA for standing. no inc symptoms initially but they did after amb w/FWW around bed 10ft SBA. BP 100/53/ Pt sit to supine SBA w/cues then after rest supine to sit indep supine BP 111/55 and seated 121/56. Pt sat in long sit fro 3 min before bringing ft over EOB and BP measured. sit to stand to crutchs SBA then amb 8ft w/crutches then sat in chair reclined w/call light in reach. Gait Assessment Gait Gait Assistance Required: Standby Assistance Distance (Feet) 18 Able to Maintain Weight Bearing Status Yes During Gait Assistive Devices Assistive Device Front Wheeled Walker,Axillary Crutches Gait Deviations General Gait Pattern Decreased Stride Length,Step- to Gait Factors Limiting Gait Function Factors Limiting Gait Function Pain Stair Climbing Assessment Comments Stair Climbing Comments n/t PT-Balance Assessment Sitting Balance and Reactions Static Sitting Balance Ability Normal Dynamic Sitting Balance Ability Normal Standing Balance and Reactions Static Standing Balance Ability Good Dynamic Standing Balance Ability Good Device Used crutches M5 PT-IP Objective Assessments Start: 08/29/22 12:32 Freq: NEEDED Status: Active Protocol: Document 08/29/22 17:56 [facility] (Rec: 08/29/22 13:07 [facility] [id number]) Orientation Orientation/Cognition Level of Alertness Alert Safety Awareness Understands Safety Issues Memory Description No Deficits Noted M6 PT-IP Treatment Start: 08/29/22 12:32 Freq: NEEDED Status: Active Protocol: Document 08/29/22 17:56 [facility] (Rec: 08/29/22 13:07 [facility] [id number]) Physical Therapy Treatment Education Education Provided Safety Other Treatments Other Treatment Performed discussed safety equipment pt needs and community options ( shower chair, BSC may be helpful, crutches) discussed getting order for crutches in hospital. Discussed w/pt re: safety at homea nd spouse is able to assist as needed. M7 PT-IP Assessment and Plan Start: 08/29/22 12:32 Freq: NEEDED Status: Active Protocol: Document 08/29/22 17:56 [facility] (Rec: 08/29/22 13:07 [facility] [id number]) PT Summary Assessment and Plan Potential Rehabilitation Potential Good Status of Condition at Evaluation Evolving Summary Impairments Pain,ROM,Strength,Balance, Cognition,Bed Mobility, Transfers,Gait,Activity Tolerance Assessment Summary Pt presents s/p L tib/fib fracture after fall on stairs w/subsequent IM nailing & ORIF with TTWB orders at this time . Pt was nauseated and dizzy today with mobility, so was limited in how much activity she could do. She did very short distances for gait, but was safe with both walkers and crutches and chose she would prefer crutches for home use. Pt would benefit from skilled PT to work on mobility in order to return home safely. Goals Bed Mobility Goal Independent Transfer Goal Independent Gait Goal Independent,Crutches Gait Distance 60ft Other Goals up/down 3 steps w/crutches SBA Days to Meet Goals 4 Frequency of Treatment Frequency Of Treatment Twice a Day Treatment Plan Physical Therapy Treatment Plan Bed Mobility Training,Transfer Training,Gait Training, Therapeutic Exercise,Balance Retraining,Post Op Education, Discharge Planning, Neuromuscular Re-ed, Coordination Retraining,Manual Therapy Other Recommendations and Next Treatment further gait and work on Focus stairs w/crutches Weight Bearing Status Weight Bearing Status Touch Down Weight Bearing Recommendations To Nursing Amount of Assist Needed Standby Assistance Discharge Recommendations PT Discharge Recommendations Home with Assistance, Outpatient PT Equipment Needed for Home Before shower chair, crutches, BSC Discharge Transportation Needs at Discharge Private Vehicle
--- NOTE | 2022-08-29 11:08 | CM.DPC ---
DCP Discharge Home Per Ortho MD, pt tolerated surgery well and to work with PT today and then likely can d/c home if cleared by PT. Per PT, pt with some nausea and dizziness and was able to participate in some PT and recommending crutches for home use and order placed but due to nausea will need to be seen this afternoon for stairs before confirmed safe for d/c home today. Plan: SW to follow for afternoon PT for stairs and CG training to confirm pt safe for d/c home with and family assist. TANMAY Rodriguez
[2022-08-29 11:59] VITALS: BP 122/76; PULSE 68; RESP 18; TEMP 36.7; O2SAT 100
--- NOTE | 2022-08-29 14:47 | PT.IPTN ---
Current Diagnoses Torus fracture of upper end of left tibia, initial encounter for closed fracture (08/27/22) Other fracture of lower end of unspecified tibia, initial encounter for closed fracture (08/27/22) Torus fracture of lower end of left fibula, initial encounter for closed fracture (08/27/22) Fall (on) (from) other stairs and steps, initial encounter (08/27/22) Surgery Performed Operation Date: 08/28/22 09:00 Actual Procedures p Intramedullary Nailing Tibia, open reduction internal fixation posterior malleolus fracture(Left) - Roma Bassett MD Physical Therapy Treatment Note M2 PT-IP Current Condition Start: 08/29/22 12:32 Freq: NEEDED Status: Active Protocol: Document 08/29/22 12:33 [facility] (Rec: 08/29/22 13:07 [facility] [id number]) Physical Therapy Current Condition Current Condition Evaluation Date 08/29/22 Treatment Diagnosis L ORIF post malleoli & IN L tibia M3 PT-IP Subjective Start: 08/29/22 12:32 Freq: NEEDED Status: Active Protocol: Document 08/29/22 14:31 [facility] (Rec: 08/29/22 14:46 [facility] [id number]) Subjective Physical Therapy Visit Type Type Treatment Note Visit Start Time 13:50 Visit Stop Time 14:25 Total Visit Minutes 35 Physical Therapy Visit Comments Patient Comments pt is sitting up in bed and has ate her lunch. She notes her pain levels are down to a 3/10 and she is not feeling as dizzy as she was. She reports needing to use the bathroom. Therapy Pain Assessment Pain When Pain Assessed During Mobility Pain Present Pain Present Pain Reported Location left ankle Intensity 3 Scale Used Numeric (0 - 10) Description Aching,Throbbing,With Movement M4 PT-IP Mobility and Gait Start: 08/29/22 12:32 Freq: NEEDED Status: Active Protocol: Document 08/29/22 14:31 [facility] (Rec: 08/29/22 14:46 [facility] [id number]) PT-Transfer Assessment Sit to and From Stand Sit to and from Stand Contact Guard Assistance Equipment Transfer Assistive Device Gait Belt,Axillary Crutches Orthotic/Prosthetic Devices or Brace: No Transfers Transfer Destination Toilet Transfer Technique TTWB with crutches Transfer Ability Level of Assist Contact Guard Assistance Comments Mobility Comments Pt demonstrates ability to remain TTWB, she prefers non WB and used axillary crutches to ambulate to the bathroom. Pt then was able to ambulate to hallway where she then sat in a wheel chair to head to the stairs. She noted she still feels a little dizzy when up. Pain is mostly at the proximal fibula Gait Assessment Gait Gait Assistance Required: Contact Guard Assist Distance (Feet) 20 Able to Maintain Weight Bearing Status Yes During Gait Assistive Devices Assistive Device Gait Belt,Axillary Crutches Gait Deviations General Gait Pattern Ataxic,Decreased Stride Length Factors Limiting Gait Function Factors Limiting Gait Function Pain Comments Gait Comments pt was able to follow TTWB precautions and prefers NWB due to pain. She demonstrated safe use of her crutches. She ambulated 20 feet with crutches and CGA Stair Climbing Assessment Evaluation Level of Assist On Stairs Minimal Assistance Devices Stair Climbing Assistive Devices Axillary Crutches Technique/Endurance Stair Climbing Direction Ascend and Descend Number of Steps Climbed 3 Comments Stair Climbing Comments pt was able to demonstrate safe stair technique with axillary crutches with min A for balance and support, she will also have her right next to her supporting her with stairs at home PT-Balance Assessment Sitting Balance and Reactions Static Sitting Balance Ability Normal Dynamic Sitting Balance Ability Normal Standing Balance and Reactions Static Standing Balance Ability Normal Dynamic Standing Balance Ability Good M5 PT-IP Objective Assessments Start: 08/29/22 12:32 Freq: NEEDED Status: Active Protocol: Document 08/29/22 12:33 [facility] (Rec: 08/29/22 13:07 [facility] [id number]) Orientation Orientation/Cognition Level of Alertness Alert Safety Awareness Understands Safety Issues Memory Description No Deficits Noted M6 PT-IP Treatment Start: 08/29/22 12:32 Freq: NEEDED Status: Active Protocol: Document 08/29/22 14:31 [facility] (Rec: 08/29/22 14:46 [facility] [id number]) Physical Therapy Treatment Education Education Provided Weight Bearing Status Equipment Issued Equipment Type and Company pt was issued axillary crutches for home( an order was placed and is under home health) Other Treatments Other Treatment Performed pt was given ice pack following treatment M7 PT-IP Assessment and Plan Start: 08/29/22 12:32 Freq: NEEDED Status: Active Protocol: Document 08/29/22 14:31 [facility] (Rec: 08/29/22 14:46 [facility] [id number]) PT Summary Assessment and Plan Potential Rehabilitation Potential Excellent Status of Condition at Evaluation Stable Summary Impairments Pain,ROM,Strength,Balance Progress Towards Goals Progressing Toward Goals Assessment Summary Eder was able to tolerate stair training this afternoon. She still feels a little dizzy when up but notes it is not as bad as this am. She was able to eat lunch and then had pain meds and this helped . She demonstrated CGA for transfers and ambulated to the bathroom with axillary crutches. She then ambulated to the hallway for stair training. A wheel chair was used to get her to the stairs as she was feeling a little more dizzy after being up. She was educated on use of crutches with stairs and was Min A for crutches on stairs to maintain her weight bearing status. Pt most likely to DC home this evening with her Goals Bed Mobility Goal Independent Transfer Goal Independent Gait Goal Independent Gait Distance 200 Days to Meet Goals 5 Frequency of Treatment Frequency Of Treatment Twice a Day Treatment Plan Physical Therapy Treatment Plan Bed Mobility Training,Transfer Training,Gait Training, Therapeutic Exercise Weight Bearing Status Weight Bearing Status Touch Down Weight Bearing Allowed Weight Bearing Amount (enter % TTWB or #) (%) Recommendations To Nursing Amount of Assist Needed 1 Person Assist Discharge Recommendations PT Discharge Recommendations Home Other Discharge Recommendations pt was dispensed crutches for home Transportation Needs at Discharge Private Vehicle
[2022-08-29] MEDS: OXYCODONE IR 5 MG TABLET PO (18:03)
--- NOTE | 2022-08-29 18:48 | PC.NURSE ---
Discharge Note Patient A&O, VSS, RA, no complaints of pain/discomfort. Discharge packet reviewed with patient, all questions/concerns addressed. PIV discontinued. Patient request for premedication prior to discharge. Patient able to dress self and pack all belongings with husbands assistance. able to picking table worker prescriptions from pharmacy. Patient taken down via wheelchair to [facility].
== END 2022-08-29 18:00 | disposition home or self-care (01) | DRG 494 ==
LOC: ED 22:07 → AC 22:16
PROVIDERS: Admitting Provider Orthopaedic Surgery Foot and Ankle Surgery; Emergency Provider Emergency Medicine; Referring Provider Emergency Medicine; Visit Provider Orthopaedic Surgery Foot and Ankle Surgery
PROC: 0QSH06Z Reposition Left Tibia with Intramedullary Internal Fixation Device, Open Approach (ICD-10-PCS; CPT 27759; principal; 2022-08-28 09:00)
DX: S82.162A Torus fracture of upper end of left tibia, initial encounter for closed fracture (principal); S82.822A Torus fracture of lower end of left fibula, initial encounter for closed fracture; S82.892A Other fracture of left lower leg, initial encounter for closed fracture; W10.9XXA Fall (on) (from) unspecified stairs and steps, initial encounter; Z20.822 Contact with and (suspected) exposure to COVID-19
CPT/HCPCS: 36415; 73590; 73610; 73700; 76000; 80053; 81003; 81025; 85025; 85027; 87635; 96374; 96375; 97116; 97162; 97530; 97535; 99152; 99284; 99285; C9803; J0690; J1100; J1170; J1885; J2250; J2405; J2704; J3010

== ENCOUNTER 2023-06-17 19:13 | Inpatient (IN) | payer OTHER, SELFPAY ==
[2022-08-27 23:46] VITALS: BMI 26.1
--- NOTE | 2023-06-17 20:31 | PM.OBHP.1 ---
OB HPI Date/Time Date of admission: 06/17/23 Date Patient Seen: 06/17/23 Time Patient Seen: 19:30 History of Present Condition Chief complaint: labor/induction : 1 Para: 0 Estimated Date of Delivery: 07/03/23 Estimated Gestational Age (weeks): 37 Narrative: Eder Dick is a 33 year old female at 37w5d by 10 week ultrasound. Her water broke at 0130 this morning at home, and she went to [facility] and was seen by Dr. Herman Stoddard MD who confirmed rupture of membranes with ROM plus, checked her cervix (0/0/-3)and had a RNST and ultrasound (cephalic presentation). This CNM recommended coming to L&D at 12 hours after ROM if no contractions; she would rather wait longer and agree to come in at 18 hours after PROM tonight, which is now. Disappointed she cannot deliver at with Darlin, as was her plan, but amenable to the plan of delivering at with Melanie CNM. Today at home it was recommended that Eder alternate rest & activity, nourish and hydrate well, pay attention to movement and color of amniotic fluid. Recommended nothing in vagina, and taking temperature to confirm normal. Eder has had an uncomplicated with CNM including normal labs, ultrasounds, Tdap vaccination, covid, influenza and RSV vaccination during . She is also up to date on flu and covid vaccinations as of this fall. Eder is GBS negative. She is continuing to leak clear fluid with a tinge of pink. Reports that her contractions are present but still irregular in both timing and intensity. She denies headache, visual changes, epigastric pain. Originally planned an unmedicated and low intervention , but now is realizing that medication to augment labor is prudent. Unsure if she wants to start augmentation now or at 24 hours. Eder is here with her , Tu and Mare white who are both at bedside and providing excellent support. History of Present care: good care, initiated at week # (13), number of visits (7) and pounds weight gain (50) Dating criteria: based on 1st trimester US only (10w3d) Ultrasounds: normal mid trimester US Obstetrical complications: none Medical complications: none Preadmission Labs Blood type: O (+) positive -: Antibody screen: negative, Cystic fibrosis screen: unknown, GBS status: negative, HBsAG: negative, HIV: negative and RPR/VDLR: negative -: Chlamydia screen: not detected and Gonorrhea screen: not detected -: Rubella: immune and Varicella: immune HCT: 32.1 (at 27w0d) HCAB: negative PAP: Normal (2019) Urine: negative UC 1 hr GTT: 130 Prior (ies) History: no prior pregnancies Evaluation Evaluation Baseline heart rate: 135 Variability: Moderate (11-25) monitor accelerations: Present Monitor Decelerations: Absent Contraction Frequency (minutes): 8 (irregular) Uterine Contraction Intensity: Mild Status: Category l Comments: Exam earlier today at was 0/0/-3. Exam not repeated due to ROM and confirmation that baby was in cephalic presentation by ultrasound today. [facility] Medical History Fracture, posterior malleolus Fall down stairs Closed tibia fracture Closed left fibular fracture Surgical History History of surgery on lower extremity Social History household members: spouse Smoking Status: Never smoker alcohol intake: current Meds Home Medications and Allergies Home Medications Medication Instructions Recorded Confirmed Type inositol 600 mg/600 mg (1/4 600 mg PO 08/28/22 History teaspoonful) oral powder aspirin 325 mg tablet,delayed 325 mg PO DAILY #42 tabs 08/29/22 Rx release docusate sodium 100 mg capsule 100 mg PO BID #30 caps 08/29/22 Rx ibuprofen 800 mg tablet 800 mg PO TID #30 tabs 08/29/22 Rx ondansetron 4 mg disintegrating 4 mg PO Q4HR PRN Nausea And 08/29/22 Rx tablet Vomiting #5 tabs oxycodone 5 mg tablet 5 mg PO Q4HR PRN pain #42 tabs 08/29/22 Rx Allergies Allergy/AdvReac Type Severity Reaction Status Date / Time No Known Drug Allergies Allergy Verified 08/28/22 08:48 Review of Systems Review of Systems Narrative: All negative except as mentioned in HPI. OB Exam Vital signs Blood Pressure: 134/89 (144/91 initially) Pulse Rate: 85 Respiratory Rate: 16 Temperature: 98 F (oral) Resp Effort & Inspection: normal respiratory effort and able to speak in complete sentences Auscultation: clear to auscultation bilaterally Cardio Rate: regular rate Rhythm: regular rhythm Heart Sounds: S1 normal, S2 normal and normal, physiologic split S2 GI Inspection: normal to inspection Presentation: vertex Estimated Weight (lbs): 7 Amniotic Fluid: clear Objective Labs 06/17/23 21:00 06/17/23 22:32 Assessment and Plan Assessment and Plan Assessment and Plan narrative: 33 year old at 37w5d by 10 week ultrasound Advanced Maternal Age GBS negative Rh positive PROM x 19 hours Hx of PCOS Gestational hypertension Plan: Admit to L&D Received and reviewed notes from triage visit at earlier today (0200). PET panel with admission labs due to elevated BP at and on arrival to [facility]. Review r/b/a of expectant management versus active management of PROM. Recommend starting pitocin or misoprostol now. Eder debated and decided to get some rest for now. Plans misoprostol at 0130 if not actively laboring by then. Discussed misoprostol versus pitocin for augmentation of labor and r/b of each. Anticipate .
[2023-06-17 21:05] LABS: Add Manual Diff / Slide Review NO; Basophils Absolute Auto 100 /uL (0-100); Basophils Percent Auto 0.4 % (0-2); Eosinophils Absolute Auto 200 /uL (0-450); Eosinophils Percent Auto 1.2 % (2-4); Hematocrit 33.7 % (36-46); Hemoglobin 11.4 g/dL (12.0-16.0); Lymphocytes Absolute Auto 2600 /uL (1100-4500); Lymphocytes Percent Auto 16.9 % (25-40); Mean Corpuscular Hemoglobin 30.5 PG (26-34); Mean Corpuscular Volume 89.7 fL (80-100); Monocytes Absolute Auto 1200 /uL (0-900); Monocytes Percent Auto 7.9 % (3-14); Neutrophils Absolute Auto 11500 /uL (1500-7000); Neutrophils Percent Auto 73.6 % (50-75); Platelet Count 247 X10^3/uL (150-400); Red Blood Cell Count 3.75 X10^6/uL (4.0-5.2); Red Cell Distribution Width 13.8 % (11.6-14.8); White Blood Cell Count 15.6 X10^3/uL (4.5-11.0)
[2023-06-17 21:17] VITALS: BP 134/89
[2023-06-17 21:27] VITALS: BP 134/89; PULSE 85; RESP 16; TEMP 36.6
[2023-06-17 22:51] LABS: Alanine Aminotransferase 19 IU/L (<35); Albumin 3.3 g/dL (3.5-5.0); Alkaline Phosphatase 119 U/L (38-126); Aspartate Aminotransferase 22 IU/L (14-36); BUN Creatinine Ratio 19.6 (6-22); Bilirubin Total 0.5 mg/dL (0.2-1.3); Blood Urea Nitrogen 9 mg/dL (7-17); Calcium 10.5 mg/dL (8.4-10.2); Carbon Dioxide 20 mmol/L (22-32); Chloride 105 mmol/L (98-107); Estimated Glomerular Filt Rate > 60 mL/min (>60); Globulin 3.2 g/dL (1.7-4.1); Glucose 96 mg/dL (70-100); HEMOLYSIS < 15 (0-50); Potassium 3.7 mmol/L (3.4-5.1); Sodium 133 mmol/L (137-145); Total Protein 6.5 g/dL (6.3-8.2)
--- NOTE | 2023-06-18 00:20 | PM.OBPNLAB ---
Date/Time Date Patient Seen: 06/18/23 Time Patient Seen: 00:15 Pain Control Pain control: tolerating well Comments: Vital Signs: BP 116/69, 134/89 HR 83 Temp 36.8 C RR 20/min FHR 145 bpm by doppler UC: 2-4 min x 45-60 seconds, moderate Pelvic Exam Comments: Exam not performed due to PROM Contractions Monitor mode: External (doppler/intermittent monitoring) Contraction intensity: Mild Status status: Category l Assessment and Plan Assessment: other (Expectant management of PROM, early labor of at 37w6d) Plan: continuous present management
--- NOTE | 2023-06-18 02:25 | PM.OBPNLAB ---
Date/Time Date Patient Seen: 06/18/23 Time Patient Seen: 02:10 Pain Control Pain control: tolerating well Comments: Eder cramping/ernie regularly. Declines misoprostol and pitocin at this time. Concerned about her energy conservation. VS: BP 134/75 HR: 80 bpm Temp: 36.8 C Pelvic Exam Dilation (cm): 1 Effacement (%): 75 station: -3 Amniotic membrane status: Ruptured (x 24 hours) Comments: Cervix posterior and soft. Exam requested by patient. Contractions Monitor mode: External (doppler/intermittent monitoring) Contraction frequency (min): 3 (2-4) Contraction duration (min): 1 Contraction pattern: Regular Contraction intensity: Mild Status Comments: FHR 145 bpm with external doppler. Increases noted. No decreases. Assessment and Plan Assessment: other (PROM x 24 hours, in early labor, GBS neg, afebrile, FHR reassuring by doppler. Normal PET panel. Consider misoprostol or pitocin later as needed and depending on contractions.)
--- NOTE | 2023-06-18 05:35 | P.PNOB_ITS ---
Date/Time Date Patient Seen: 06/18/23 Time Patient Seen: 05:25 Pain Control Pain control: other Comments: Eder is coping well supported by her and broomcorn press feeder. Contractions spaced out to q 7-9 min x 45-60 seconds, moderate to palpation, soft in between. VS: BP 127/68 HR 99 bpm Temp: 36.7 C Pelvic Exam Amniotic membrane status: Ruptured (x 29 hours) Comments: Exam not repeated due to PROM. Contractions Monitor mode: External (doppler/intermittent monitoring) Contraction frequency (min): 3 (2-4) Contraction pattern: Regular Contraction intensity: Mild Status Comments: FHR 155 bpm. Increases noted, no decreases. Assessment and Plan Assessment: other (PROM x 29 hours. Afebrile. in early labor. GBS neg. FHR reassuring by doppler) Plan: other (Recommend misoprostol or pitocin augmentation of labor. Eder consents to misoprostol.)
[2023-06-18] MEDS: miSOPROStoL 200 MCG TABLET 50 MCG SL (06:50)
--- NOTE | 2023-06-18 12:15 | PM.OBPNLAB ---
Date/Time Date Patient Seen: 06/18/23 Time Patient Seen: 10:00 Pain Control Pain control: tolerating well (supported by creative/art director and ) Comments: Eder sitting in throne on bed, supported by Mare and Tu. Working hard with regular contractions. VS: BP 129/76 HR 95 bpm Temp 36.4 C Pelvic Exam Amniotic membrane status: Ruptured (x 29 hours) Comments: Exam deferred r/to PROM Voiding well, hydrating well. Contractions Monitor mode: External (continuous monitoring with Cindy) Contraction frequency (min): 3 (2-4) Contraction duration (min): 1 Contraction pattern: Regular Contraction intensity: Moderate Status status: Category l Heart Rate Baseline: 130 Monitor Accelerations: Present Monitor Decelerations: Absent Monitor Variability: Moderate Assessment and Plan Assessment: other Comments: at 37w6d in early labor GBS neg Rh positive PROM x 32 hours Afebrile FHR Cat 1 Misoprostol 50 mcg given buccally at 0650. Continuous bedside support from creative/art director, , CNM Exam if Eder requests Repeat misoprostol or initiate pitocin depending on contraction pattern. BP and temp q 2 hours. Continuous monitoring d/t prolonged PROM. Anticipate .
--- NOTE | 2023-06-18 14:59 | PM.OBPNLAB ---
Date/Time Date Patient Seen: 06/18/23 Time Patient Seen: 13:00 Pain Control Pain control: tolerating well Comments: Eder is working hard; supported well. Feeling some pressure; requests exam. Drinking water frequently. Pelvic Exam Dilation (cm): 6 Effacement (%): 90 station: 0 Amniotic membrane status: Ruptured (x 35 hours) Contractions Date/Time contractions began: Active labor started approx 0930 Monitor mode: External (continuous monitoring with Cindy) Contraction frequency (min): 3 (2-4) Contraction duration (min): 1 Contraction pattern: Regular Contraction intensity: Moderate Status status: Category ll Heart Rate Baseline: 130 Monitor Accelerations: Present Monitor Decelerations: Variable Monitor Variability: Moderate Assessment and Plan Assessment: active labor and other (Gestational hypertension; , PROM x 36 hours, FHR Cat 2) Plan: continuous present management Comments: Recommend nitrous oxide for pain management. Anticipate .
--- NOTE | 2023-06-18 16:56 | P.PNOB_ITS ---
Date/Time Date Patient Seen: 06/18/23 Time Patient Seen: 16:30 Pain Control Pain control: tolerating well (with manager union support, shower) Comments: Eder continues to labor well. Thrilled she's complete and can push. Has been feeling lots of pressure and the urge to push for about an hour. VS: BP 143/83 Pulse: 108 bpm T 37.2 C Pelvic Exam Dilation (cm): 10 Effacement (%): 100 station: +2 Amniotic membrane status: Ruptured (x 39 hours) Contractions Monitor mode: External (continuous monitoring with Cindy) Contraction frequency (min): 2 (1-4) Contraction pattern: Regular Contraction intensity: Strong/Firm Status status: Category ll Heart Rate Baseline: 130 Monitor Accelerations: Present Monitor Decelerations: Variable Monitor Variability: Moderate Assessment and Plan Comments: at 37w6d in 2nd stage labor PROM x 39 hours GBS neg, afebrile FHR Cat 2 Gestational Hypertension Encourage pushing Continue monitoring temp and BP q 2 hours Anticipate
[2023-06-18] MEDS: OXYTOCIN 10 UNIT/ML VIAL IM (18:28)
--- NOTE | 2023-06-18 20:13 | PM.OBPRVD ---
Events: Premature Rupture Membrane and Prolonged Rupture Membrane (x39 hours) Labor & Delivery Delivery date: 06/18/23 Intrapartal Events: None Cervical ripening method: per misoprostal protocol Induction method: none Delivery monitor: external FHT Route of delivery: Episiotomy description: None L&D Laceration Description: Perineal - 2nd Degree Delivery repair: vicryl Quantitative Blood Loss: 610 Anesthesia Type: None Complications: Prolonged PROM without infection Narrative: Labor progressed quickly once Eder got into active phase. She felt the spontaneous urge to push for a while prior to exam at 1630 when she was complete and +2 and pushed effectively for another 1.5 hours. FHR was Cat 2 throughout 2nd stage. NSVB of baby at 1807, shoulders delivered easily after restitution. Eder remained afebrile throughout labor and there were no other signs of infection. Vigorous baby boy was placed on maternal abdomen when she was ready to receive him. Apgars 9/9. 10 mU pitocin given IM for AMTSL. They remained skin to skin while cord was cut and placenta was delivered. Placenta delivered spontaneously with maternal efforts and appeared to be intact. 3 vessel cord clamped and cut by Tu (FOB) at 19 minutes of life after cord pulsing had stopped. Cord blood collected for blood typing. Perineum inspected and 2nd degree perineal laceration found and repaired with 3-0 Vicryl in usual manner. 3 bleeding vessels also repaired with [id number]. Shallow periurethral lacerations noted bilaterally. Blood loss measured and estimated loss is 610 mL. Due to no IV, TXA given via mucus membrane. Mom and baby left stable and is being initiated. Tu Gaines and Eder's mom are thrilled to meet their baby. Kaitlin Garcia COSTUME DESIGNER, CNM, IBCLC Baby 1: Infant gender: Male Presentation: vertex Position: Right Occiput Anterior Placenta delivery description: Spontaneous Cord Vessel Description: 3 Vessels score (1 min): 9 score (5 min): 9 weight: 3146 kg Plan for aftercare: Routine care
[2023-06-18] MEDS: TRANEXAMIC ACID 1,000 MG VIAL 1000 MG MM (20:40)
[2023-06-18] MEDS: IBUPROFEN 600 MG TABLET PO (20:43)
[2023-06-19] MEDS: ACETAMINOPHEN 325 MG TABLET 650 MG PO ×3 (00:28→14:01)
[2023-06-19] MEDS: IBUPROFEN 600 MG TABLET PO ×3 (03:05→16:38)
[2023-06-19 08:25] LABS: Hematocrit 33.2 % (36-46); Hemoglobin 11.2 g/dL (12.0-16.0); Mean Corpuscular HGB Conc 33.6 % (30-36); Mean Corpuscular Hemoglobin 29.9 PG (26-34); Mean Corpuscular Volume 89.1 fL (80-100); Platelet Count 253 X10^3/uL (150-400); Red Blood Cell Count 3.72 X10^6/uL (4.0-5.2); Red Cell Distribution Width 13.8 % (11.6-14.8); White Blood Cell Count 27.2 X10^3/uL (4.5-11.0)
[2023-06-19 08:26] LABS: Add Manual Diff / Slide Review YES
[2023-06-19 08:35] LABS: Alanine Aminotransferase 22 IU/L (<35); Albumin 3.1 g/dL (3.5-5.0); Albumin Globulin Ratio 0.9 (1.0-2.8); Alkaline Phosphatase 104 U/L (38-126); Aspartate Aminotransferase 39 IU/L (14-36); BUN Creatinine Ratio 17.9 (6-22); Bilirubin Total 0.6 mg/dL (0.2-1.3); Blood Urea Nitrogen 10 mg/dL (7-17); Calcium 10.5 mg/dL (8.4-10.2); Carbon Dioxide 19 mmol/L (22-32); Chloride 105 mmol/L (98-107); Estimated Glomerular Filt Rate > 60 mL/min (>60); Globulin 3.3 g/dL (1.7-4.1); Glucose 141 mg/dL (70-100); HEMOLYSIS < 15 (0-50); Potassium 3.4 mmol/L (3.4-5.1); Sodium 132 mmol/L (137-145); Total Protein 6.4 g/dL (6.3-8.2)
[2023-06-19 08:37] LABS: Neutrophils Absolute Manual 23664 /uL (3000-5900); RBC Morphology Normal Morphology; Total Cells Counted 100
--- NOTE | 2023-06-19 16:50 | PM.OBDS.1 ---
Discharge Providers Provider Date of admission: 06/17/23 19:13 Discharge Date: 06/19/23 Consults: 06/17/23 20:18 Consult to Anesthesiology Urgent Comment: Consulting Provider: Anesthesiologist Reason for consultation: Epidural Has provider been notified: No 06/19/23 19:56 Consult to Electronic Service Technician Routine Comment: Discharge provider: Kaitlin Garcia CNM, ARNP Summary Hospital Course Date Patient Seen: 06/19/23 Time Patient Seen: 15:51 Diagnoses: 2nd degree perineal laceration Early term infant hemorrhage Gestational hypertension Hospital Course: Eder arrived 18 hours after PROM for admission. Declined active management of PROM; proceeded to labor overnight and accept 50 mcg misoprostol x 1 in AM. Active labor and normal 2nd stage resulted in of vigorous baby boy. 2nd degree perineal laceration and bleeders repaired in usual fashion and treated with IM pitocin and oral TXA due to IV no longer functional. Normal course. . Peripartum Data Infant Delivery Method: Natural Vaginal Laceration Description: Perineal - 2nd Degree 1: Gender: Male Disposition of : home Discharge Diagnosis (1) Elderly primigravida in third trimester: Status: Acute (2) PROM with onset of labor more than 24 hours following rupture: Status: Acute (3) Encounter for care of primigravida in third trimester, antepartum: Status: Acute (4) Gestational hypertension: Status: Acute Status at Discharge Cognitive/behavioral status at discharge: oriented and calm Functional status at discharge: independent ambulation Overall status at discharge: patient is progressing back to baseline Time Spent with Patient Time attestation: Total time spent providing and/or coordinating discharge services: Time spent: Less than 30 minutes Specific discharge activities: discharge teaching Objective Labs 06/19/23 08:10 06/19/23 08:10 Labs: Laboratory Results - last 24 hr 06/19/23 08:10 WBC 27.2 H D RBC 3.72 L Hgb 11.2 L Hct 33.2 L MCV 89.1 MCH 29.9 MCHC 33.6 RDW 13.8 Plt Count 253 Neut % (Auto) Not Reportable Lymph % (Auto) Not Reportable [place] % (Auto) Not Reportable Eos % (Auto) Not Reportable Baso % (Auto) Not Reportable Lymph # (Auto) Not Reportable [place] # (Auto) Not Reportable Baso # (Auto) Not Reportable Total Counted 100 Seg Neutrophils % 87.0 H Lymphocytes % (Manual) 11.0 L Monocytes % (Manual) 2.0 Neutrophils # (Manual) 54509 H RBC Morphology Normal morphology Sodium 132 L Potassium 3.4 Chloride 105 Carbon Dioxide 19 L BUN 10 Creatinine 0.56 Estimated GFR > 60 BUN/Creatinine Ratio 17.9 Glucose 141 H Calcium 10.5 H Total Bilirubin 0.6 AST 39 H ALT 22 Alkaline Phosphatase 104 Total Protein 6.4 Albumin 3.1 L Globulin 3.3 Albumin/Globulin Ratio 0.9 L Exam Other: Fundus firm at U-1, midline. Lochia scant Perineum intact with minimal edema Discharge Plan Discharge Plan Patient Disposition: Home Discharge orders & Medications Prescriptions: Continued inositol 600 mg/600 mg (07/27 teaspoon) Powder 600 mg PO ibuprofen 800 mg tablet 800 mg PO TID Qty: 30 0RF Discontinued aspirin 325 mg Tablet,Delayed Release (Dr/Ec) 325 mg PO DAILY Qty: 42 0RF docusate sodium 100 mg Capsule 100 mg PO BID Qty: 30 0RF ondansetron 4 mg Tablet,Disintegrating 4 mg PO Q4HR PRN (Reason: Nausea And Vomiting) Qty: 5 1RF oxycodone 5 mg Tablet 5 mg PO Q4HR PRN (Reason: pain) Qty: 42 0RF Medication counseling provided by Pharmacist: No Follow up/Referrals: Darlin Vaughn ARNP [Non-Staff] - As previously scheduled (Appointment 1245 on 06/21/23 due to GHTN. Labs prior at ) Kaitlin Garcia, LEXUS, PRINCE [Advanced Vice President Of Sales] - Diet/Activity/Treatments Diet: Diet as Tolerated Diet comment: Increase fiber and fluid for soft stool and recovery Activity: low ritter for 2 weeks Cold/Heat Therapy: as needed for pain/discomfort Skin/Wound/Dressing Care Skin care: gentle, usual care Report to your healthcare provider any signs of infection, such as:: chills, fever, increased pain, unusual drainage and unusual redness Other wound treatment: Soak perineum 3-5 times daily Visit Report/Discharge Packet Instructions: DI for Vaginal Discharge Stand Alone Forms: Patient Portal/API, Stroke Signs & Symptoms
[2023-06-19 18:48] VITALS: BP 134/89; PULSE 85; RESP 16; TEMP 36.6
== END 2023-06-19 17:55 | disposition home or self-care (01) | DRG 807 ==
PROVIDERS: Admitting Provider Advanced Practice Midwife; Referring Provider Advanced Practice Midwife; Visit Provider Advanced Practice Midwife
DX: O42.12 Full-term premature rupture of membranes, onset of labor more than 24 hours following rupture (principal); Z37.0 Single live birth; O70.1 Second degree perineal laceration during delivery; O13.4 Gestational [pregnancy-induced] hypertension without significant proteinuria, complicating childbirth; O76 Abnormality in fetal heart rate and rhythm complicating labor and delivery; Z3A.37 37 weeks gestation of pregnancy
CPT/HCPCS: 36415; 59050; 59200; 80053; 84550; 85007; 85025; 86850; 86900; 86901; G0379; J2590; S0191